=== PATIENT | male | born 1990 | race Caucasian/White ===

== ENCOUNTER 2024-02-16 12:32 | Emergency (ER) | payer OTHER | END 2024-02-16 16:23 | disposition home or self-care (01) | LOC: ERS 12:32 | DX: S92.122A Displaced fracture of body of left talus, initial encounter for closed fracture (principal); S92.025A Nondisplaced fracture of anterior process of left calcaneus, initial encounter for closed fracture; X50.1XXA Overexertion from prolonged static or awkward postures, initial encounter; Z55.6 Problems related to health literacy; Z87.891 Personal history of nicotine dependence ==

== ENCOUNTER 2025-09-10 12:38 | Emergency (ER) | payer OTHER ==
[2025-09-10 14:15] LABS: #Basophils 0.03 10x3/uL (0.0-0.2); #Eosinophils 0.06 10x3/uL (0.0-0.7); #Monocytes 0.47 10x3/uL (0.11-0.59); #Neutrophils 4.28 10x3/uL (1.40-6.50); %Basophils 0.5 % (0.0-1.0); %Eosinophils 0.9 % (0.0-10.0); %Lymphocytes 25.2 % (21.0-51.0); %Monocytes 7.2 % (0.0-10.0); %Neutrophils 65.9 % (42.0-75.0); Hematocrit 47.6 % (42.0-52.0); Hemoglobin 16.0 g/dL (14.0-18.0); Mean Corpuscular Hemoglobin 30.4 pg (27.0-31.0); Mean Corpuscular Volume 90.5 fL (78.0-98.0); Platelet Count 209 10x3/uL (130-400); Red Blood Cell (RBC) Count 5.26 mill/uL (4.70-6.10); White Blood Cell (WBC) Count 6.50 10x3/uL (4.8-10.8)
[2025-09-10 14:31] LABS: ALT (SGPT) 30 U/L (Less than 45); AST (SGOT) 29 U/L (11-34); Albumin 4.9 g/dL (3.1-4.5); Alkaline Phosphatase 73 U/L (40-110); Anion Gap 16 mmol/L (10-20); BUN (Urea Nitrogen) 10 mg/dL (8.9-20.6); Bilirubin, Total 0.9 mg/dL (0.3-1.2); Calc. Creatinine Clearance 0 mL/min (70-130); Calcium 10.0 mg/dL (7.8-10.44); Carbon Dioxide 28 mmol/L (22-29); Chloride 102 mmol/L (98-107); Globulin 2.6 g/dL (2.4-3.5); Glucose 91 mg/dL (70-105); Potassium 4.0 mmol/L (3.5-5.1); Sodium 142 mmol/L (136-145)
== END 2025-09-10 17:57 | disposition home or self-care (01) ==
LOC: ERS 12:38
DX: R07.89 Other chest pain (principal)
CPT/HCPCS: 71045; 80053; 84484; 85025; 93005